=== PATIENT | female | born 1960 | race Caucasian/White ===

== ENCOUNTER 2022-02-14 10:21 | Outpatient (CLI) | payer BC, SELFPAY ==
--- NOTE | ~2022-02-14 | XR_ITS ---
EXAMINATION: XR chest 2V 02/14/2022 10:38 INDICATION: Cough PROCEDURE: 2 view chest COMPARISON: No prior studies for comparison. FINDINGS: The lungs are clear. The cardiomediastinal silhouette is within normal limits. There are no pleural effusions. There is no pneumothorax suspected. IMPRESSION: 1: NO ACUTE CARDIOPULMONARY DISEASE. Reviewed, dictated and finalized at location A.
== END 2022-02-14 10:22 ==
PROVIDERS: PCP Family Medicine; Visit Provider Physician Assistant
DX: R05.9 Cough, unspecified (principal)
CPT/HCPCS: 71046

== ENCOUNTER 2022-08-23 09:55 | Outpatient (CLI) | payer BC, SELFPAY ==
--- NOTE | ~2022-08-23 | XR_ITS ---
Left Knee Technique: AP, lateral, notch, and sunrise views were obtained. Clinical History: Pain Findings: No fracture or dislocation is seen. Osseous alignment is anatomic. Mild patellar and interc ondylar notch spurring is present.. Soft tissues are unremarkable. No joint effusion is seen. Impression: Mild degenerative spurring, as detailed above. Reviewed, dictated and finalized at location . N TIRE INSPECTOR Impression: Mild degenerative spurring, as detailed above.
== END 2022-08-23 09:56 ==
LOC: MICIMG 09:57
PROVIDERS: PCP Physician Assistant; Visit Provider Physician Assistant
DX: M25.569 Pain in unspecified knee (principal); M77.9 Enthesopathy, unspecified
CPT/HCPCS: 73564

== ENCOUNTER 2023-08-26 17:32 | Inpatient (IN) | payer BC, MEDICARE, SELFPAY ==
[2023-08-26] VITALS (18 sets, daily range): BP systolic 146–187; BP diastolic 73–147; PULSE 72–108; RESP 12–28; TEMP 37.4; O2SAT 95–98
--- NOTE | ~2023-08-26 | US_ITS ---
EXAMINATION: US venous doppler [facility] DATE: 08/27/2023 15:06 INDICATION: Lower limb edema. TECHNIQUE: Grayscale ultrasound images without and with compression and Doppler ultrasound images of the bilateral lower extremity veins were obtained. COMPARISON: None. FINDINGS: The visualized portions of right common femoral vein, profunda (deep) femoral vein, femoral vein, pop liteal vein, peroneal veins, posterior tibial veins, and greater saphenous vein outflow are patent. The visualized portions of left common femoral vein, profunda femoral vein, femoral vein, popliteal v ein, peroneal veins, posterior tibial veins, and greater saphenous vein outflow are patent. IMPRESSION: 1. No deep venous thrombosis. Reviewed, dictated and finalized at location A. X DEVOPS ENGINEER
--- NOTE | ~2023-08-26 | XR_ITS ---
Portable chest x-ray Comparison: 02/14/2022 Clinical History: Swelling Findings: Possible mild central congestive change. No consolidation or pleural effusion otherwise. Cardiomediastinal silhouette is stable. Bones and soft tissues are unremarkable. Impression: Mild central congestive changes. Reviewed, dictated and finalized at [facility]. Y TECHNICIAN Impression: Mild central congestive changes.
--- NOTE | 2023-08-26 19:49 | ED.SKABFB ---
HPI - Skin/Abscess/Foreign Bdy General Chief complaint: Skin/Abscess/Foreign Body Stated complaint: open sores to legs Time Seen by Provider: 08/26/23 18:42 History of Present Illness HPI narrative: Patient is a 63-year-old female presenting with leg sores. States that she has had a lot of leg swelling for at least the last month. States that she has developed open sores over the last several weeks that are weeping a lot. States that they are intermittently tender and warm. No numbness or weakness. No fevers or chills or nausea or vomiting. States that she finally got sick of it so she came in today to be evaluated. Related Data Home Medications Medication Instructions Recorded Confirmed ascorbate calcium (vitamin C) 500 500 mg PO DAILY 02/14/22 08/23/22 mg tablet aspirin 81 mg tablet,delayed 81 mg PO DAILY 02/14/22 08/23/22 release (Adult Aspirin Regimen) cholecalciferol (vitamin D3) 25 25 mcg PO DAILY 02/14/22 08/23/22 mcg (1,000 unit) capsule [id number]-tok-[id number]-FA-Ca carb-vit K 1 tablet PO DAILY 02/14/22 08/23/22 18 mg iron-400 mcg-500 mg tablet fexofenadine 180 mg tablet 180 mg PO DAILY 08/23/22 08/23/22 (Comfort Allergy) Allergies Allergy/AdvReac Type Severity Reaction Status Date / Time No Known Allergies Allergy Unverified 08/23/22 09:07 Review of Systems Review of Systems: All systems reviewed & are unremarkable except as noted in HPI and below [facility] Past Medical History Medical History Heart murmur History of echo, believes Aortic stenosis Melanoma Right arm removal, around 1999 No longer wanting to follow up with dermatology Family History Family History Daughter Hyperthyroidism Sibling Breast cancer Social History Social History Social History: Lives alone. 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 Smoking status: Never smoker Alcohol intake: never Substance use: never Substance use type: does not use Lack of Transportation: No Lack of Food: Never True Current Housing: I Have Housing Concerned About Future Housing: No Difficulty Paying Gas/Electric Bills: No Difficulty Paying for Meds: No Currently Unemployed: No Education: High School Diploma/GED Difficulty w/ Childcare or Family Care: No Living arrangements: alone Occupation/Education: occupation Agree to blood products: Yes Exam Narrative: GENERAL: Nontoxic, no acute distress, pleasant and cooperative HEAD: Normocephalic, atraumatic. EYES: PERRLA and EOMI. ENT: Mucous membranes moist. NECK: Supple. CHEST: Clear to auscultation. No respiratory distress. HEART: Regular rate and rhythm. Normal peripheral pulses. ABDOMEN: Soft, nontender, nondistended EXTREMITIES: +bilateral LE edema up to knees with skin sloughing from anterior shins with surrounding cellulitis, mild tenderness SKIN: Warm, dry, as above NEURO: No focal deficits. Alert and oriented x3. PSYCH: Normal mood and affect. Course Vital Signs Vital signs: Vital Signs Temperature 99.4 F 08/26/23 17:38 Pulse Rate 108 H 08/26/23 17:38 Respiratory Rate 16 08/26/23 17:38 Blood Pressure 187/103 H 08/26/23 17:38 Pulse Oximetry 96 08/26/23 17:38 Temperature 99.4 F 08/26/23 17:38 Pulse Rate 96 08/26/23 18:45 Respiratory Rate 21 H 08/26/23 18:45 Blood Pressure 185/95 H 08/26/23 18:45 Pulse Oximetry 96 08/26/23 18:45 Oxygen Delivery Room Air 08/26/23 18:45 MDM - Skin/Abscess/Foreign Bdy MDM Narrative Medical decision making narrative: 63-year-old female presenting with bilateral leg swelling and sores for about 1 month. Patient initially tachycardic, otherwise vitals are within normal limits. Exam is remarkable for the above. Blood work without significant abnormalities. Cultures are pending. P
[2023-08-26 20:27] LABS: Basophils Absolute Auto 0.1 K/mm3 (0.0-0.1); Basophils Percent Auto 0.5 % (0.2-1.2); Eosinophils Percent Auto 0.2 % (0-4.4); Hematocrit 39.8 % (37.0-47.0); Hemoglobin 12.7 g/dL (12.0-15.0); Immature Granulocyte Absolute 0.02 K/mm3 (0.00-0.031); Immature Granulocyte Percent A 0.2 % (0-0.5); Lymphocytes Absolute Auto 1.33 K/mm3 (0.9-3.2); Lymphocytes Percent Auto 13.4 % (18.3-44.2); Mean Corpuscular HGB Conc 31.9 g/dl (32-36); Mean Corpuscular Hemoglobin 28.6 pg (26-34); Mean Corpuscular Volume 89.6 fl (80-100); Mean Platelet Volume 9.4 fl (7.4-10.4); Monocytes Absolute Auto 0.9 K/mm3 (0.1-0.6); Monocytes Percent Auto 9.5 % (2.6-8.5); Neutrophils Absolute Auto 7.6 K/mm3 (1.3-6.7); Neutrophils Percent Auto 76.2 % (45.5-73.1); Platelet Count Result 317 k/mm3 (150-375); Red Blood Count 4.44 M/mm3 (4.2-5.4); Red Cell Distribution Width 13.3 % (11.5-14.5); White Blood Count 9.9 K/mm3 (4.5-10.0)
[2023-08-26 20:35] LABS: Influenza A QL RT-PCR Negative (Negative); Influenza B QL RT-PCR Negative (Negative); RSV RNA, RT-PCR Negative (Negative); SARS-CoV-2 RNA PCR Negative (Negative)
[2023-08-26] MEDS: SODIUM CHLORIDE 0.9% IV 1,000 ML 999 ML IV CONT (20:35)
[2023-08-26] MEDS: CEFEPIME 1 GM/NS 50 ML 1 GM/50 ML BAG IVPB (20:35)
[2023-08-26 20:37] LABS: Alanine Aminotransferase 22 U/L (6-35); Albumin Level 3.8 g/dL (3.5-5.1); Alkaline Phosphatase 73 U/L (38-126); Anion Gap 7 mmol/L (8-16); Aspartate Amino Transferase 40 U/L (14-36); Bilirubin,Total 0.8 mg/dL (0.2-1.3); Blood Urea Nitrogen 13 mg/dL (7-17); Calcium 9.1 mg/dL (8.4-10.2); Carbon Dioxide 28 mmol/L (22-30); Chloride 102 mmol/L (98-107); Estimated CRCL calculation 86 ml/min; Estimated Glomerular Filt Rate > 60; Glucose 105 mg/dL (65-110); Potassium 3.9 mmol/L (3.4-5.0); Sodium 137 mmol/L (137-145)
[2023-08-26 20:39] LABS: Lactic Acid Reflex 1.3 mmol/L (0.7-2.0)
[2023-08-26 20:46] LABS: NT Pro B Type Natriuretic Pept 1350 pg/mL (19.9-100)
[2023-08-26] MEDS: VANCOMYCIN 1,500 MG/NS 500 ML 1,500 MG/500 ML BAG 250 MG IVPB (21:35)
--- NOTE | 2023-08-26 22:18 | PM.IMHP ---
H&P: HPI History of Present Illness Date/Time: 08/26/23 22:18 Chief Complaint: Cellulitis Narrative: This is a 63-year-old female with past medical history significant for venous stasis, chronic lymphedema, patient presents to the emergency room due to worsening bilateral lower extremity edema, redness, skin slough of now patient has foul-smelling discharge. Denies any fevers rigors or chills, no nausea no vomiting no diarrhea no abdominal pain, according to patient this has been ongoing for a month, she was using Vaseline over the dry skin. Preliminary workup has been essentially nonrevealing. Patient tested negative for influenza type A influenza type B RSV and COVID patient has been admitted for further evaluation management and treatment. Review of Systems Review of Systems: Worsening bilateral lower extremity edema, skin slough off, malodorous discharge Constitutional: Constitutional: Denies chills, Denies fatigue, Denies fever(s), Denies malaise and Denies night sweats Eyes: Eyes: Denies change in vision ENT: Denies dysphagia, Denies vertigo, Denies dizziness, Denies odynophagia and Denies disequilibrium Cardiovascular: Cardiovascular: Denies chest pain, Reports pedal edema, Reports leg edema, Denies radiating jaw, neck or arm pain and Denies palpitations Respiratory: Respiratory: Denies cough and Denies dyspnea Gastrointestinal: Gastrointestinal: Denies abdominal pain, Denies dyspepsia, Denies heartburn, Denies diarrhea, Denies nausea and Denies vomiting Genitourinary: Genitourinary: Reports no additional female genitourinary complaints and Reports as per HPI Musculoskeletal: Musculoskeletal: Reports other (Bilateral lower extremity edema and pain) Integumentary/Breasts: Skin/Breast: Reports swelling, Reports rash and Reports sores Neurologic: Denies focal weakness and Denies Sensory deficit (Neuro) Psychiatric: Psychiatric: Reports no additional psychiatric complaints and Reports as per HPI Endocrine: Endocrine: Denies cold intolerance, Denies heat intolerance, Denies polyphagia, Denies polydipsia and Denies palpitations Hematologic/Lymphatic: Hematologic/Lymphatic: Reports no additional hematologic/lymphatic complaints and Reports as per HPI Allergic/Immunologic: Allergic/Immunologic: Reports no additional allergic/immunologic complaints and Reports as per HPI [facility] Past Medical History Medical History Heart murmur History of echo, believes Aortic stenosis Melanoma Right arm removal, around 1999 No longer wanting to follow up with dermatology Family History Family History Daughter Hyperthyroidism Sibling Breast cancer Social History Social History Social History: Lives alone. 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 Smoking status: Never smoker Alcohol intake: never Substance use: never Substance use type: does not use Do You Feel Safe in your Home?: Yes Lack of Transportation: No Lack of Food: Never True Current Housing: I Have Housing Concerned About Future Housing: No Difficulty Paying Gas/Electric Bills: No Difficulty Paying for Meds: No Currently Unemployed: No Education: High School Diploma/GED Difficulty w/ Childcare or Family Care: No Living arrangements: alone Occupation/Education: occupation Spiritual care concerns: No Agree to blood products: Yes Meds Home Medications and Allergies Home Medications Medication Instructions Recorded Confirmed Type ascorbate calcium (vitamin C) 500 500 mg PO DAILY 02/14/22 08/26/23 History mg tablet aspirin 81 mg tablet,delayed 81 mg PO DAILY 02/14/22 08/26/23 History release (Adult Aspirin Regimen) cholecalciferol (vitamin D3) 25 25 mcg PO DAILY 02/14/22 08/26/23 History mcg (1,000 unit) capsule [id number]
--- NOTE | 2023-08-26 22:59 | PC.NURSE ---
Vanc infusing at time of transfer to . No distress noted.
--- NOTE | 2023-08-26 23:22 | ADMGEN ---
This patient, Raul Hong, was admitted to Medical Room 348-01. Patient/family oriented to hospital policies and general routines including ID bracelet, bed and alarms, visiting hours, pain management, procedures, bathroom and other care routines, personal items, smoking policy, room service/diet, and visiting hours. Information on how to activate the Rapid Response Team has been discussed. Patient/Family are encouraged to report perceived risks to care and to ask questions if they do not understand what they are told or what they should do.
--- NOTE | 2023-08-27 | ECHO_ITS ---
Patient Info Name: Raul Hong Age: 63 years : 1960 Gender: Female Ht: 68 in Wt: 230 lbs BSA: 2.28 m2 HR: 84 bpm BP: 150 / 72 mmHg Heart Rhythm: Sinus Rhythm Technical Quality: Poor Exam Date: 08/27/2023 10:26 AM Exam Location: Echo Lab Patient Status: Inpatient Admit Date: 08/26/2023 Staff Ordering Physician: Rosas Martinez MD Environmental Economist: Augustin Nieves RDCS Attending Provider: Rosas Martinez MD Referring Physician: Juan BARNETT; Exam Type: CA echo dop color flow w con Study Info Indications - edema Complete two-dimensional, color flow and Doppler transthoracic echocardiogram is performed with contrast to opacify the left ventricle and to improve the deliniation of the left ventricle endocardial borders. Reason for Poor Study: poor echocardiographic windows Summary 1. Left ventricular chamber dimension is normal. 2. Left ventricular systolic function is normal, estimated at >70%. 3. There is moderately increased left ventricular wall thickness. 4. The left ventricular diastolic function is grade I diastolic dysfunction. 5. Right ventricular systolic function is normal. 6. Left atrial chamber dimension is mildly enlarged. 7. There is mild tricuspid valve regurgitation. 8. There is trivial pericardial effusion. Left Ventricle Left ventricular chamber dimension is normal. Left ventricular systolic function is normal, estimated at >70%. There is moderately increased left ventricular wall thickness. The left ventricular diastolic function is grade I diastolic dysfunction. Right Ventricle Right ventricular chamber dimension is normal. Right ventricular systolic function is normal. Left Atria Left atrial chamber dimension is mildly enlarged. Right Atria Right atrial chamber dimension is normal. Atrial Septum Intact interatrial septum visualized by color flow imaging. Aortic Valve The aortic valve is probable trileaflet. There is no aortic valve stenosis. There is no aortic valve regurgitation. There is moderate aortic valve calcification. Pulmonic Valve The pulmonic valve is not well visualized. Mitral Valve There is trace mitral valve regurgitation. Tricuspid Valve There is mild tricuspid valve regurgitation. Pericardium/Pleural There is trivial pericardial effusion. Inferior Vena Cava Dilated inferior vena cava with >50% collapse upon inspiration consistent with elevated right atrial pressure, 8 mmHg. Aorta The aortic root size at the sinus of Valsalva is normal. Left Ventricular Outflow Tract Name Value Normal LVOT 2D LVOT Diameter 2.04 cm LVOT Doppler LVOT Peak Gradient 14 mmHg LVOT Mean Gradient 9 mmHg LVOT VTI 41.79 cm LVOT VTI/AV VTI Ratio 0.79 LVOT Stroke Volume 136.07 ml LVOT CO 9.35 l/min LVOT CI 4.11 L/min/m2 Pulmonic Valve Name Value Normal RVOT Dop
[2023-08-27 02:39] VITALS: BP 150/72; PULSE 84; RESP 20; TEMP 37.3; O2SAT 98
[2023-08-27 06:00] VITALS: BP 158/66; PULSE 91; RESP 18; TEMP 37.7; O2SAT 95
[2023-08-27 07:07] LABS: Estimated CRCL calculation 86 ml/min; Estimated Glomerular Filt Rate > 60
[2023-08-27] MEDS: ASPIRIN 81 MG ENTERIC TABLET PO (08:30)
[2023-08-27] MEDS: ENOXAPARIN 40 MG/0.4 ML SYRINGE SUB-Q (08:30)
[2023-08-27] MEDS: PERFLUTREN LIPID MICROSPHERES 1.5 ML VIAL DILUTED TO 10 ML TOTAL VOLUME IV PUSH (11:00)
--- NOTE | 2023-08-27 12:40 | IVDEFINITY ---
Prior to administration of IV Definity the patient was educated on the risks and benefits of the imaging enhancing agent including potential adverse side effects. The patient verbalized understanding. Allergies were verified. No exclusion criteria were identified and at least one of the following inclusion criteria were met: 1) physician request, 2) patient technically difficult to image (per the [place] [employer]ch[employer] guidelines of two or more segments not discernable within the apical view), or 3) questionable left ventricular function. ?
[2023-08-27] MEDS: VANCOMYCIN 1,500 MG/NS 500 ML 1,500 MG/500 ML BAG 250 MG IVPB (12:57)
[2023-08-27] MEDS: TOLNAFTATE 1% POWDER 45 GM BTL 1 APPLIC TOPICAL (12:58)
[2023-08-27 13:35] VITALS: BP 146/64; PULSE 77; RESP 16; TEMP 37.3; O2SAT 95
--- NOTE | 2023-08-27 15:46 | PM.IMPN ---
Progress Note: A&P Assessment and Plan (1) Bilateral lower leg cellulitis: Code(s): L03.116 - Cellulitis of left lower limb; L03.115 - Cellulitis of right lower limb Status: Acute Assessment and Plan: Admit to regular medical floor General surgery consult Wound care consult Akil wraps Started on cefepime and vanc Await cultures Elevate legs, dress wounds, compression stockings. (2) Heart murmur: Code(s): R01.1 - Cardiac murmur, unspecified Status: Acute Assessment and Plan: Will obtain an echocardiogram (3) Leg swelling: Code(s): M79.89 - Other specified soft tissue disorders Status: Acute Assessment and Plan: Will obtain bilateral lower extremity venous Doppler (4) Dyslipidemia: Code(s): E78.5 - Hyperlipidemia, unspecified Status: Acute Assessment and Plan: Resume statin (5) Obesity (BMI 30-39.9): Code(s): E66.9 - Obesity, unspecified Status: Acute Assessment and Plan: Diet and lifestyle modification (6) CHF (congestive heart failure): Code(s): I50.9 - Heart failure, unspecified Status: Acute Assessment and Plan: ECHO: Summary ? 1. Left ventricular chamber dimension is normal. ? 2. Left ventricular systolic function is normal, estimated at >70%. ? 3. There is moderately increased left ventricular wall thickness. ? 4. The left ventricular diastolic function is grade I diastolic dysfunction. ? 5. Right ventricular systolic function is normal. ? 6. Left atrial chamber dimension is mildly enlarged. ? 7. There is mild tricuspid valve regurgitation. ? 8. There is trivial pericardial effusion. Preserved EF, diastolic CHF IV Lasix; Monitor renal function Time Spent With Patient Time with patient: 25 - 35 minutes Subjective Date/time seen: 08/27/23 15:46 Interval history: Nahomi and examined; Being managed for bilateral lower extremity venous stasis dermatitis with cellulitis. She has prolonged periods with her feet dangling while in a recliner at home Review of Systems Review of Systems: Worsening bilateral lower extremity edema, skin slough off, malodorous discharge Constitutional: Constitutional: Denies chills, Denies fatigue, Denies fever(s), Denies malaise and Denies night sweats Eyes: Eyes: Denies change in vision ENT: Denies dysphagia, Denies vertigo, Denies dizziness, Denies odynophagia and Denies disequilibrium Cardiovascular: Cardiovascular: Denies chest pain, Reports pedal edema, Reports leg edema, Denies radiating jaw, neck or arm pain, Denies palpitations and Denies dyspnea Respiratory: Respiratory: Denies cough and Denies dyspnea Gastrointestinal: Gastrointestinal: Denies abdominal pain, Denies dysphagia, Denies dyspepsia, Denies heartburn, Denies diarrhea, Denies nausea, Denies odynophagia and Denies vomiting Genitourinary: Genitourinary: Reports no additional female genitourinary complaints and Reports as per HPI Musculoskeletal: Musculoskeletal: Reports other (Bilateral lower extremity edema and pain) Integumentary/Breasts: Skin/Breast: Reports swelling, Reports erythema, Reports rash and Reports sores Neurologic: Denies vertigo, Denies dizziness, Denies focal weakness, Denies Sensory deficit (Neuro) and Denies disequilibrium Psychiatric: Psychiatric: Reports no additional psychiatric complaints and Reports as per HPI Endocrine: Endocrine: Denies cold intolerance, Denies fatigue, Denies heat intolerance, Denies polyphagia, Denies polydipsia and Denies palpitations Hematologic/Lymphatic: Hematologic/Lymphatic: Reports no additional hematologic/lymphatic complaints and Reports as per HPI Allergic/Immunologic: Allergic/Immunologic: Reports no additional allergic/immunologic complaints and Reports as per HPI Exam Narrative: Patient is laying in bed Const: General: comfortable, no acute distress, well developed, alert, awake and average body habitus Nutritional A
--- NOTE | 2023-08-27 15:47 | PCCCNOTE ---
On 08/27/23, the student, [Liya Hoang ], provided care and completed [facility] documentation on this patient. I have reviewed the student's documentation and agree with the findings.
[2023-08-27] MEDS: FUROSEMIDE INJ 40 MG/4 ML VIAL IV PUSH (17:17)
[2023-08-27 18:17] LABS: Appearance Urine Clear (Clear); Bacteria Urine None Seen /hpf; Bilirubin Urine Negative (Negative); Blood Urine Negative (Negative); Color Urine Yellow (Yellow); Glucose Urine UA Negative (Negative); Ketones Urine Negative (Negative); Leukocyte Esterase Ur Trace LEU/UL (Negative); Nitrate Urine Negative (Negative); Non Pathogenic Casts 0-2; Protein Urine Negative (Negative); RBC Urine 0-2 /hpf (0-2); Specific Grav Ur 1.012 (1.001-1.035); Squamous Epithelial Cell Urine None seen /hpf (Few); pH Urine 5.5 (5.0-9.0)
[2023-08-27 18:23] LABS: Add Urine Microscopic? YES
[2023-08-27] MEDS: ACETAMINOPHEN 500 MG TABLET 1000 MG PO (21:23)
[2023-08-27 22:00] VITALS: BP 145/68; PULSE 72; RESP 18; TEMP 36.8; O2SAT 96
[2023-08-28] MEDS: VANCOMYCIN 1,500 MG/NS 500 ML 1,500 MG/500 ML BAG 250 MG IVPB ×2 (01:33→12:51)
[2023-08-28 05:48] LABS: Basophils Absolute Auto 0.1 K/mm3 (0.0-0.1); Basophils Percent Auto 0.8 % (0.2-1.2); Eosinophils Absolute Auto 0.3 K/mm3 (0-0.3); Eosinophils Percent Auto 4.5 % (0-4.4); Hematocrit 36.2 % (37.0-47.0); Hemoglobin 11.3 g/dL (12.0-15.0); Immature Granulocyte Absolute 0.02 K/mm3 (0.00-0.031); Immature Granulocyte Percent A 0.3 % (0-0.5); Lymphocytes Absolute Auto 1.83 K/mm3 (0.9-3.2); Lymphocytes Percent Auto 29.6 % (18.3-44.2); Mean Corpuscular HGB Conc 31.2 g/dl (32-36); Mean Corpuscular Hemoglobin 28.5 pg (26-34); Mean Corpuscular Volume 91.4 fl (80-100); Mean Platelet Volume 9.6 fl (7.4-10.4); Neutrophils Percent Auto 48.8 % (45.5-73.1); Platelet Count Result 236 k/mm3 (150-375); Red Blood Count 3.96 M/mm3 (4.2-5.4); Red Cell Distribution Width 13.4 % (11.5-14.5); White Blood Count 6.2 K/mm3 (4.5-10.0)
[2023-08-28 06:00] VITALS: BP 181/83; PULSE 65; RESP 20; TEMP 36.5; O2SAT 98
[2023-08-28 06:01] LABS: Alanine Aminotransferase 18 U/L (6-35); Albumin Level 2.9 g/dL (3.5-5.1); Alkaline Phosphatase 57 U/L (38-126); Anion Gap 2 mmol/L (8-16); Aspartate Amino Transferase 44 U/L (14-36); Bilirubin,Total 0.8 mg/dL (0.2-1.3); Blood Urea Nitrogen 11 mg/dL (7-17); Calcium 8.2 mg/dL (8.4-10.2); Carbon Dioxide 32 mmol/L (22-30); Chloride 104 mmol/L (98-107); Estimated CRCL calculation 86 ml/min; Estimated Glomerular Filt Rate > 60; Glucose 99 mg/dL (65-110); Potassium 3.5 mmol/L (3.4-5.0); Sodium 138 mmol/L (137-145)
[2023-08-28] MEDS: FUROSEMIDE INJ 40 MG/4 ML VIAL IV PUSH ×2 (08:39→17:32)
[2023-08-28] MEDS: ENOXAPARIN 40 MG/0.4 ML SYRINGE SUB-Q (08:39)
[2023-08-28] MEDS: ASPIRIN 81 MG ENTERIC TABLET PO (08:39)
[2023-08-28] MEDS: TOLNAFTATE 1% POWDER 45 GM BTL 1 APPLIC TOPICAL (08:40)
[2023-08-28 12:31] LABS: Vancomycin Trough 11.4 ug/mL (10.0-20.0)
[2023-08-28 14:37] VITALS: BP 160/67; PULSE 77; RESP 18; TEMP 36.9; O2SAT 96
--- NOTE | 2023-08-28 18:03 | PM.IMPN ---
Progress Note: A&P Assessment and Plan (1) Bilateral lower leg cellulitis: Code(s): L03.116 - Cellulitis of left lower limb; L03.115 - Cellulitis of right lower limb Status: Acute Assessment and Plan: Admit to regular medical floor General surgery consult Wound care consult Akil wraps Started on cefepime and vanc Await cultures Elevate legs, dress wounds, compression stockings. 08/28/23: Continue wound dressing (2) Heart murmur: Code(s): R01.1 - Cardiac murmur, unspecified Status: Acute Assessment and Plan: Will obtain an echocardiogram (3) Leg swelling: Code(s): M79.89 - Other specified soft tissue disorders Status: Acute Assessment and Plan: Will obtain bilateral lower extremity venous Doppler (4) Dyslipidemia: Code(s): E78.5 - Hyperlipidemia, unspecified Status: Acute Assessment and Plan: Resume statin (5) Obesity (BMI 30-39.9): Code(s): E66.9 - Obesity, unspecified Status: Acute Assessment and Plan: Diet and lifestyle modification (6) CHF (congestive heart failure): Code(s): I50.9 - Heart failure, unspecified Status: Acute Assessment and Plan: ECHO: Summary ? 1. Left ventricular chamber dimension is normal. ? 2. Left ventricular systolic function is normal, estimated at >70%. ? 3. There is moderately increased left ventricular wall thickness. ? 4. The left ventricular diastolic function is grade I diastolic dysfunction. ? 5. Right ventricular systolic function is normal. ? 6. Left atrial chamber dimension is mildly enlarged. ? 7. There is mild tricuspid valve regurgitation. ? 8. There is trivial pericardial effusion. Preserved EF, diastolic CHF IV Lasix; Monitor renal function Time Spent With Patient Time with patient: 25 - 35 minutes Subjective Date/time seen: 08/28/23 18:03 Interval history: Nahomi and examined; Being managed for bilateral lower extremity venous stasis dermatitis with cellulitis. She has prolonged periods with her feet dangling while in a recliner at home 08/28/23: No fresh concerns Review of Systems Review of Systems: Worsening bilateral lower extremity edema, skin slough off, malodorous discharge Constitutional: Constitutional: Denies chills, Denies fatigue, Denies fever(s), Denies malaise and Denies night sweats Eyes: Eyes: Denies change in vision ENT: Denies dysphagia, Denies vertigo, Denies dizziness, Denies odynophagia and Denies disequilibrium Cardiovascular: Cardiovascular: Denies chest pain, Reports pedal edema, Reports leg edema, Denies radiating jaw, neck or arm pain, Denies palpitations and Denies dyspnea Respiratory: Respiratory: Denies cough and Denies dyspnea Gastrointestinal: Gastrointestinal: Denies abdominal pain, Denies dysphagia, Denies dyspepsia, Denies heartburn, Denies diarrhea, Denies nausea, Denies odynophagia and Denies vomiting Genitourinary: Genitourinary: Reports no additional female genitourinary complaints and Reports as per HPI Musculoskeletal: Musculoskeletal: Reports other (Bilateral lower extremity edema and pain) Integumentary/Breasts: Skin/Breast: Reports swelling, Reports erythema, Reports rash and Reports sores Neurologic: Denies vertigo, Denies dizziness, Denies focal weakness, Denies Sensory deficit (Neuro) and Denies disequilibrium Psychiatric: Psychiatric: Reports no additional psychiatric complaints and Reports as per HPI Endocrine: Endocrine: Denies cold intolerance, Denies fatigue, Denies heat intolerance, Denies polyphagia, Denies polydipsia and Denies palpitations Hematologic/Lymphatic: Hematologic/Lymphatic: Reports no additional hematologic/lymphatic complaints and Reports as per HPI Allergic/Immunologic: Allergic/Immunologic: Reports no additional allergic/immunologic complaints and Reports as per HPI Exam Narrative: Patient is laying in bed Const: General: comfortable, no acute distress, well d
--- NOTE | 2023-08-28 18:46 | PC.NURSE ---
This nurse has reviewed the charting assessment for this pt.
[2023-08-28 20:40] VITALS: BP 139/69; PULSE 86; RESP 18; TEMP 37.3; O2SAT 97
[2023-08-28] MEDS: ACETAMINOPHEN 500 MG TABLET 1000 MG PO (20:52)
[2023-08-29] MEDS: VANCOMYCIN 1,500 MG/NS 500 ML 1,500 MG/500 ML BAG 250 MG IVPB ×2 (00:06→12:50)
[2023-08-29 05:41] LABS: Basophils Percent Auto 0.6 % (0.2-1.2); Eosinophils Absolute Auto 0.3 K/mm3 (0-0.3); Eosinophils Percent Auto 4.8 % (0-4.4); Hematocrit 41.4 % (37.0-47.0); Hemoglobin 13.1 g/dL (12.0-15.0); Immature Granulocyte Absolute 0.03 K/mm3 (0.00-0.031); Immature Granulocyte Percent A 0.4 % (0-0.5); Lymphocytes Absolute Auto 1.85 K/mm3 (0.9-3.2); Mean Corpuscular HGB Conc 31.6 g/dl (32-36); Mean Corpuscular Hemoglobin 28.4 pg (26-34); Mean Corpuscular Volume 89.6 fl (80-100); Mean Platelet Volume 9.4 fl (7.4-10.4); Monocytes Absolute Auto 0.7 K/mm3 (0.1-0.6); Monocytes Percent Auto 10.1 % (2.6-8.5); Neutrophils Absolute Auto 4.1 K/mm3 (1.3-6.7); Neutrophils Percent Auto 58.1 % (45.5-73.1); Platelet Count Result 299 k/mm3 (150-375); Red Blood Count 4.62 M/mm3 (4.2-5.4); Red Cell Distribution Width 13.2 % (11.5-14.5); White Blood Count 7.1 K/mm3 (4.5-10.0)
[2023-08-29 05:56] LABS: Alanine Aminotransferase 20 U/L (6-35); Albumin Level 3.2 g/dL (3.5-5.1); Alkaline Phosphatase 64 U/L (38-126); Anion Gap 1 mmol/L (8-16); Aspartate Amino Transferase 40 U/L (14-36); Bilirubin,Total 0.7 mg/dL (0.2-1.3); Blood Urea Nitrogen 8 mg/dL (7-17); Calcium 8.6 mg/dL (8.4-10.2); Carbon Dioxide 35 mmol/L (22-30); Chloride 101 mmol/L (98-107); Estimated CRCL calculation 86 ml/min; Estimated Glomerular Filt Rate > 60; Glucose 103 mg/dL (65-110); Potassium 3.5 mmol/L (3.4-5.0); Sodium 137 mmol/L (137-145)
[2023-08-29 06:35] VITALS: BP 173/81; PULSE 70; RESP 16; TEMP 37; O2SAT 96
[2023-08-29] MEDS: ASPIRIN 81 MG ENTERIC TABLET PO (08:44)
[2023-08-29] MEDS: ENOXAPARIN 40 MG/0.4 ML SYRINGE SUB-Q (08:45)
[2023-08-29] MEDS: TOLNAFTATE 1% POWDER 45 GM BTL 1 APPLIC TOPICAL (08:45)
[2023-08-29] MEDS: FUROSEMIDE INJ 40 MG/4 ML VIAL IV PUSH ×2 (08:45→17:44)
[2023-08-29 16:14] VITALS: PULSE 88; RESP 16; TEMP 36.9; O2SAT 95
--- NOTE | 2023-08-29 16:58 | PM.IMPN ---
Progress Note: A&P Assessment and Plan (1) Bilateral lower leg cellulitis: Code(s): L03.116 - Cellulitis of left lower limb; L03.115 - Cellulitis of right lower limb Status: Acute Assessment and Plan: Admit to regular medical floor General surgery consult Wound care consult Akil wraps Started on cefepime and vanc Await cultures Elevate legs, dress wounds, compression stockings. 08/28/23: Continue wound dressing 08/29/23: Will pursue C with wound care; will change Abx over the weekend (2) Heart murmur: Code(s): R01.1 - Cardiac murmur, unspecified Status: Acute Assessment and Plan: Will obtain an echocardiogram (3) Leg swelling: Code(s): M79.89 - Other specified soft tissue disorders Status: Acute Assessment and Plan: 1.? No deep venous thrombosis. (4) Dyslipidemia: Code(s): E78.5 - Hyperlipidemia, unspecified Status: Acute Assessment and Plan: Resume statin (5) Obesity (BMI 30-39.9): Code(s): E66.9 - Obesity, unspecified Status: Acute Assessment and Plan: Diet and lifestyle modification (6) CHF (congestive heart failure): Code(s): I50.9 - Heart failure, unspecified Status: Acute Assessment and Plan: ECHO: Summary ? 1. Left ventricular chamber dimension is normal. ? 2. Left ventricular systolic function is normal, estimated at >70%. ? 3. There is moderately increased left ventricular wall thickness. ? 4. The left ventricular diastolic function is grade I diastolic dysfunction. ? 5. Right ventricular systolic function is normal. ? 6. Left atrial chamber dimension is mildly enlarged. ? 7. There is mild tricuspid valve regurgitation. ? 8. There is trivial pericardial effusion. Preserved EF, diastolic CHF IV Lasix; Monitor renal function Plan 08/29/23: Continue wound dressing; pursue [facility] with wound care; Will DC in 2-3 days Time Spent With Patient Time with patient: 25 - 35 minutes Subjective Date/time seen: 08/29/23 16:58 Interval history: Nahomi and examined; Being managed for bilateral lower extremity venous stasis dermatitis with cellulitis. She has prolonged periods with her feet dangling while in a recliner at home 08/28/23: No fresh concerns 08/28/23: Eager to go home and dress wounds by self and with the help of family Review of Systems Review of Systems: Worsening bilateral lower extremity edema, skin slough off, malodorous discharge Constitutional: Constitutional: Denies chills, Denies fatigue, Denies fever(s), Denies malaise and Denies night sweats Eyes: Eyes: Denies change in vision ENT: Denies dysphagia, Denies vertigo, Denies dizziness, Denies odynophagia and Denies disequilibrium Cardiovascular: Cardiovascular: Denies chest pain, Reports pedal edema, Reports leg edema, Denies radiating jaw, neck or arm pain, Denies palpitations and Denies dyspnea Respiratory: Respiratory: Denies cough and Denies dyspnea Gastrointestinal: Gastrointestinal: Denies abdominal pain, Denies dysphagia, Denies dyspepsia, Denies heartburn, Denies diarrhea, Denies nausea, Denies odynophagia and Denies vomiting Genitourinary: Genitourinary: Reports no additional female genitourinary complaints and Reports as per HPI Musculoskeletal: Musculoskeletal: Reports other (Bilateral lower extremity edema and pain) Integumentary/Breasts: Skin/Breast: Reports swelling, Reports erythema, Reports rash and Reports sores Neurologic: Denies vertigo, Denies dizziness, Denies focal weakness, Denies Sensory deficit (Neuro) and Denies disequilibrium Psychiatric: Psychiatric: Reports no additional psychiatric complaints and Reports as per HPI Endocrine: Endocrine: Denies cold intolerance, Denies fatigue, Denies heat intolerance, Denies polyphagia, Denies polydipsia and Denies palpitations Hematologic/Lymphatic: Hematologic/Lymphatic: Reports no additional hematologic/lymphatic complaints and Reports as per HPI Aller
--- NOTE | 2023-08-29 18:40 | PC.NURSE ---
This nurse has reviewed the chart for this pt.
[2023-08-29 20:00] VITALS: PULSE 72; RESP 18; O2SAT 95
[2023-08-29 20:12] VITALS: BP 167/72; PULSE 72; RESP 18; TEMP 37.1; O2SAT 95
[2023-08-30] MEDS: VANCOMYCIN 1,500 MG/NS 500 ML 1,500 MG/500 ML BAG 250 MG IVPB (00:12)
[2023-08-30 05:22] VITALS: BP 173/76; PULSE 73; RESP 18; TEMP 36.6; O2SAT 96
[2023-08-30 06:35] LABS: Basophils Percent Auto 0.4 % (0.2-1.2); Eosinophils Absolute Auto 0.3 K/mm3 (0-0.3); Eosinophils Percent Auto 4.8 % (0-4.4); Hematocrit 36.3 % (37.0-47.0); Immature Granulocyte Absolute 0.03 K/mm3 (0.00-0.031); Immature Granulocyte Percent A 0.4 % (0-0.5); Lymphocytes Absolute Auto 1.55 K/mm3 (0.9-3.2); Lymphocytes Percent Auto 22.4 % (18.3-44.2); Mean Corpuscular HGB Conc 33.1 g/dl (32-36); Mean Corpuscular Hemoglobin 29.3 pg (26-34); Mean Corpuscular Volume 88.5 fl (80-100); Mean Platelet Volume 9.5 fl (7.4-10.4); Monocytes Absolute Auto 0.8 K/mm3 (0.1-0.6); Monocytes Percent Auto 11.1 % (2.6-8.5); Neutrophils Absolute Auto 4.2 K/mm3 (1.3-6.7); Neutrophils Percent Auto 60.9 % (45.5-73.1); Platelet Count Result 278 k/mm3 (150-375); Red Cell Distribution Width 13.2 % (11.5-14.5); White Blood Count 6.9 K/mm3 (4.5-10.0)
[2023-08-30 06:38] LABS: Alanine Aminotransferase 17 U/L (6-35); Albumin Level 3.1 g/dL (3.5-5.1); Alkaline Phosphatase 56 U/L (38-126); Anion Gap 4 mmol/L (8-16); Aspartate Amino Transferase 31 U/L (14-36); Bilirubin,Total 0.7 mg/dL (0.2-1.3); Blood Urea Nitrogen 9 mg/dL (7-17); Calcium 8.3 mg/dL (8.4-10.2); Carbon Dioxide 34 mmol/L (22-30); Chloride 100 mmol/L (98-107); Estimated CRCL calculation 86 ml/min; Estimated Glomerular Filt Rate > 60; Glucose 107 mg/dL (65-110); Potassium 3.4 mmol/L (3.4-5.0); Sodium 138 mmol/L (137-145)
[2023-08-30] MEDS: ASPIRIN 81 MG ENTERIC TABLET PO (09:10)
[2023-08-30] MEDS: FUROSEMIDE INJ 40 MG/4 ML VIAL IV PUSH ×2 (09:10→17:18)
[2023-08-30] MEDS: ENOXAPARIN 40 MG/0.4 ML SYRINGE SUB-Q (09:10)
[2023-08-30 12:49] LABS: Vancomycin Trough 11.1 ug/mL (10.0-20.0)
--- NOTE | 2023-08-30 13:15 | PM.IMPN ---
Progress Note: A&P Assessment and Plan (1) Bilateral lower leg cellulitis: Code(s): L03.116 - Cellulitis of left lower limb; L03.115 - Cellulitis of right lower limb Status: Acute (2) Heart murmur: Code(s): R01.1 - Cardiac murmur, unspecified Status: Acute (3) Leg swelling: Code(s): M79.89 - Other specified soft tissue disorders Status: Acute Assessment and Plan: 1.? No deep venous thrombosis. (4) Dyslipidemia: Code(s): E78.5 - Hyperlipidemia, unspecified Status: Acute Assessment and Plan: Resume statin (5) Obesity (BMI 30-39.9): Code(s): E66.9 - Obesity, unspecified Status: Acute Assessment and Plan: Diet and lifestyle modification (6) CHF (congestive heart failure): Code(s): I50.9 - Heart failure, unspecified Status: Acute Assessment and Plan: ECHO: Summary ? 1. Left ventricular chamber dimension is normal. ? 2. Left ventricular systolic function is normal, estimated at >70%. ? 3. There is moderately increased left ventricular wall thickness. ? 4. The left ventricular diastolic function is grade I diastolic dysfunction. ? 5. Right ventricular systolic function is normal. ? 6. Left atrial chamber dimension is mildly enlarged. ? 7. There is mild tricuspid valve regurgitation. ? 8. There is trivial pericardial effusion. Preserved EF, diastolic CHF IV Lasix; Monitor renal function Plan Cellulitis/venous stasis BLE -Blood cultures NGTD -Wound culture No growth -Switch to PO Bactrim -Wound Care -Elevate BLE -Keep open to air may clean with soap and water -Recommended duration of antibiotic therapy for 7-10 days. -consult I&D if needed based off cultures -Venous dopplers negative for DVT HLD -Resumed statin Obesity -encourage increased on physical activity and lifestyle modifications -Stress monitoring and eating disorder evaluation. -encourage outpatient weight loss clinic -BMI . -Diet exercise counseling done. -consult to dietitian CHF -none exacerbation -diastolic heart failure EF greater than 70% -echocardiogram Diastolic LVEF 70 -EKG NSR -elevate/Akil wrap legs if needed -Antiplatelet therapy, statin therapy, loop diuretics as indicated,. -Optimize blood pressure less than 130/80. -Fall risk assessment. Code status: Full code per patient DVT prophylaxis: Lovenox Stress ulcer prophylaxis: Protonix 40 daily PT/OT notes: Disposition: Time Spent With Patient Time with patient: 25 - 35 minutes Subjective Date/time seen: 08/30/23 13:15 Interval history: H&P (Medical Record) This is a 63-year-old female with past medical history significant for venous stasis, chronic lymphedema, patient presents to the emergency room due to worsening bilateral lower extremity edema, redness, skin slough of now patient has foul-smelling discharge.? Denies any fevers rigors or chills, no nausea no vomiting no diarrhea no abdominal pain, according to patient this has been ongoing for a month, she was using Vaseline over the dry skin.? Preliminary workup has been essentially nonrevealing.? Patient tested negative for influenza type A influenza type B RSV and COVID patient has been admitted for further evaluation management and treatment. 08/30: Patient in no acute distress BLE redness improving will switch to PO ABX blood culture NGTD and no growth on wound cultures. Removed bandages and recommended open to air keep dry may clean with soap and water. CC to set up HH and wound care. Normal WBC and remains afebrile. Review of Systems Review of Systems: All systems reviewed & are unremarkable except as noted in HPI and below Exam Narrative: Physical Exam: -GENERAL: Alert and oriented x 3. No acute distress. Obese. -EYES: EOMI. No scleral icterus. PERRLA. -HEENT: Moist mucous membranes. No cervical lymphadenopathy. -LUNGS: Clear to auscultation bilaterally. No accessory mus
[2023-08-30 13:19] VITALS: O2SAT 94
[2023-08-30] MEDS: SULFAMETHOXAZOLE/TRIMETHOPRIM 800/160 MG DS TABLET 1 TAB PO ×2 (13:31→20:55)
[2023-08-30] MEDS: TOLNAFTATE 1% POWDER 45 GM BTL 1 APPLIC TOPICAL (13:36)
[2023-08-30 15:03] VITALS: BP 153/79; PULSE 67; RESP 16; TEMP 36.9; O2SAT 97
[2023-08-30 20:50] VITALS: BP 152/88; PULSE 70; RESP 18; TEMP 37.2; O2SAT 96
[2023-08-31 05:55] VITALS: BP 160/70; PULSE 69; RESP 18; TEMP 36.7; O2SAT 98
[2023-08-31 06:25] LABS: Basophils Percent Auto 0.6 % (0.2-1.2); Eosinophils Absolute Auto 0.4 K/mm3 (0-0.3); Eosinophils Percent Auto 5.9 % (0-4.4); Hematocrit 38.6 % (37.0-47.0); Hemoglobin 12.1 g/dL (12.0-15.0); Immature Granulocyte Absolute 0.02 K/mm3 (0.00-0.031); Immature Granulocyte Percent A 0.3 % (0-0.5); Lymphocytes Absolute Auto 1.52 K/mm3 (0.9-3.2); Mean Corpuscular HGB Conc 31.3 g/dl (32-36); Mean Corpuscular Hemoglobin 28.4 pg (26-34); Mean Corpuscular Volume 90.6 fl (80-100); Mean Platelet Volume 9.8 fl (7.4-10.4); Monocytes Absolute Auto 0.8 K/mm3 (0.1-0.6); Monocytes Percent Auto 12.1 % (2.6-8.5); Neutrophils Absolute Auto 3.9 K/mm3 (1.3-6.7); Neutrophils Percent Auto 58.1 % (45.5-73.1); Platelet Count Result 286 k/mm3 (150-375); Red Blood Count 4.26 M/mm3 (4.2-5.4); Red Cell Distribution Width 13.2 % (11.5-14.5); White Blood Count 6.6 K/mm3 (4.5-10.0)
[2023-08-31 06:29] LABS: Alanine Aminotransferase 17 U/L (6-35); Albumin Level 3.3 g/dL (3.5-5.1); Alkaline Phosphatase 57 U/L (38-126); Anion Gap 5 mmol/L (8-16); Aspartate Amino Transferase 29 U/L (14-36); Bilirubin,Total 0.7 mg/dL (0.2-1.3); Blood Urea Nitrogen 11 mg/dL (7-17); Calcium 8.5 mg/dL (8.4-10.2); Carbon Dioxide 32 mmol/L (22-30); Chloride 98 mmol/L (98-107); Estimated CRCL calculation 76 ml/min; Estimated Glomerular Filt Rate > 60; Glucose 101 mg/dL (65-110); Potassium 3.5 mmol/L (3.4-5.0); Sodium 135 mmol/L (137-145)
[2023-08-31] MEDS: FUROSEMIDE INJ 40 MG/4 ML VIAL IV PUSH (09:35)
[2023-08-31] MEDS: ENOXAPARIN 40 MG/0.4 ML SYRINGE SUB-Q (09:35)
[2023-08-31] MEDS: ASPIRIN 81 MG ENTERIC TABLET PO (09:35)
[2023-08-31] MEDS: SULFAMETHOXAZOLE/TRIMETHOPRIM 800/160 MG DS TABLET 1 TAB PO (09:35)
--- NOTE | 2023-08-31 11:35 | PM.DS ---
DS: Admitting Diagnosis Discharge Date 08/31/2023 Admitting Diagnosis Cellulitis/Venous Stasis DS: Discharge Diagnosis Discharge Diagnosis (1) Bilateral lower leg cellulitis: Code(s): L03.116 - Cellulitis of left lower limb; L03.115 - Cellulitis of right lower limb Status: Acute (2) Heart murmur: Code(s): R01.1 - Cardiac murmur, unspecified Status: Acute (3) Leg swelling: Code(s): M79.89 - Other specified soft tissue disorders Status: Acute Assessment and Plan: 1.? No deep venous thrombosis. (4) Dyslipidemia: Code(s): E78.5 - Hyperlipidemia, unspecified Status: Acute Assessment and Plan: Resume statin (5) Obesity (BMI 30-39.9): Code(s): E66.9 - Obesity, unspecified Status: Acute Assessment and Plan: Diet and lifestyle modification (6) CHF (congestive heart failure): Qualifiers: Heart failure type: diastolic Heart failure chronicity: chronic Qualified Code(s): I50.32 - Chronic diastolic (congestive) heart failure Code(s): I50.9 - Heart failure, unspecified Status: Acute Plan Cellulitis/venous stasis BLE 1. Daily cleanse bilateral lower legs with soap and water. 2. Elevate legs when at rest 3. Apply silver gel to open wound areas. 4. Leave open to air 5. HH for wound checks HLD -Resumed statin Obesity -encourage increased on physical activity and lifestyle modifications -Stress monitoring and eating disorder evaluation. -encourage outpatient weight loss clinic -Diet exercise counseling done. CHF -Lasix 40 mg Daily Hypertension -started on 20mg lisinopril -BP monitor at home -Follow-up primary care physician in 1 month DS: Summary Hospital Course Reason for hospitalization: BLE wounds/Cellulitis/Venous Stasis Hospital Course: Interval history: H&P (Medical Record) This is a 63-year-old female with past medical history significant for venous stasis, chronic lymphedema, patient presents to the emergency room due to worsening bilateral lower extremity edema, redness, skin slough of now patient has foul-smelling discharge.? Denies any fevers rigors or chills, no nausea no vomiting no diarrhea no abdominal pain, according to patient this has been ongoing for a month, she was using Vaseline over the dry skin.? Preliminary workup has been essentially nonrevealing.? Patient tested negative for influenza type A influenza type B RSV and COVID patient has been admitted for further evaluation management and treatment. 08/30:? Patient in no acute distress BLE redness improving will switch to PO ABX blood culture NGTD and no growth on wound cultures.? Removed bandages and recommended open to air keep dry may clean with soap and water.? CC to set up HH and wound care.? Normal WBC and remains afebrile. 08/31: Discharged Patient ambulatory reports minimal pain to BLE. Redness and swelling improved and wounds are drying. Patient with elevated BP started on Lisinopril 20mg daily will need to follow-up with PCP. Normal WBC and remained afebrile, Labs WNL and vitals stable. Patient agreed to HH discharged to home. Encouraged on feet elevation and keeping BLE wounds clean and dry. Patient was switch to PO Bactrim for cellulitis coverage. Status at Discharge Functional status at discharge: independent ambulation Overall status at discharge: patient is back to baseline Time Spent with Patient Time attestation: Total time spent providing and/or coordinating discharge services: Time spent: Greater than 30 minutes Exam Narrative: Physical Exam: -GENERAL: Alert and oriented x 3. No acute distress. Obese. -EYES: EOMI. No scleral icterus. PERRLA. -HEENT: Moist mucous membranes. No cervical lymphadenopathy. -LUNGS: Clear to auscultation bilaterally. No accessory muscle use. -CARDIOVASCULAR: Regular rate and rhythm. No murmur. No JVD. S1-S2 -ABDOMEN: Soft, non-tender and non-distende
== END 2023-08-31 14:35 | disposition home health service (06) | DRG 603 ==
LOC: ANHED 22:43 → ANH3MED 22:47
PROVIDERS: Internal Medicine; Admitting Provider Internal Medicine; Emergency Provider Emergency Medicine; PCP Family Medicine; Visit Provider Nurse Practitioner Family
DX: L03.116 Cellulitis of left lower limb (principal); I50.32 Chronic diastolic (congestive) heart failure; L03.115 Cellulitis of right lower limb; I87.2 Venous insufficiency (chronic) (peripheral); R01.1 Cardiac murmur, unspecified; E78.5 Hyperlipidemia, unspecified; Z20.822 Contact with and (suspected) exposure to COVID-19; Z85.820 Personal history of malignant melanoma of skin; Z79.82 Long term (current) use of aspirin
CPT/HCPCS: 36415; 71045; 80053; 80202; 81001; 82565; 83605; 83880; 85025; 87040; 87086; 87637; 93970; 96365; 96375; 99285; A9270; C8929; J0692; J1650; J1940; J3370; J7030; Q9957